=== PATIENT | female | born 1955 | race Caucasian/White ===

== ENCOUNTER 2021-02-11 17:30 | Emergency (ER) | payer OTHER ==
[~2021-02-11] VITALS: Ht 160 cm; Wt 61.2 kg
[~2021-02-11 17:30] MED LIST: ACETAMINOPHEN-1 EAC1 PO; BRINTELLIX10 MG; FLEXERIL PO; HYDROCODONE-AP1 EAC6 PO; IBUPROFEN 800800 M1 PO; PROVENTIL HFA6.7 G1 INH; PROZAC10 MG PO; PROZAC40 MG PO; SYMBICORT80 MCG/4.1 INH; VENTOLIN HFA 1818 GM INH; XANAX 0.25 MG0.25 MG PO
[2021-02-11] MEDS ORDERED: TRAMADOL 50 MG50 MG PO (17:41)
[2021-02-11] MEDS ORDERED: SINGULAIR4 M1 PO (17:41)
[2021-02-11] MEDS ORDERED: BUPROPION XL300 MG PO (17:41)
[2021-02-11] MEDS ORDERED: DUPIXENT200 MG/1.1 SUBQ (17:42)
[2021-02-11] MEDS ORDERED: HYDROCODON-ACE1 EAC7 PO (18:53)
[2021-02-11 19:05] VITALS: BP 115/68
== END 2021-02-11 19:06 | disposition home or self-care (01) ==
LOC: M.ERS 17:30
DX: S01.421A Laceration with foreign body of right cheek and temporomandibular area, initial encounter (principal); S06.0X9A Concussion with loss of consciousness of unspecified duration, initial encounter; J45.909 Unspecified asthma, uncomplicated; F32.9 Major depressive disorder, single episode, unspecified; F41.9 Anxiety disorder, unspecified; Z79.899 Other long term (current) drug therapy; W01.0XXA Fall on same level from slipping, tripping and stumbling without subsequent striking against object, initial encounter; Y93.89 Activity, other specified; Y92.89 Other specified places as the place of occurrence of the external cause; Y99.8 Other external cause status